=== PATIENT | female | born 1995 | race African-American/Black ===

== ENCOUNTER 2019-06-06 05:56 | Inpatient (IN) ==
[2019-06-06] MEDS ORDERED: ONDANSETRON 4 MG/2 ML VIAL IV PRN (06:09)
[2019-06-06] MEDS ORDERED: MEPERIDINE 50 MG/1 ML VIAL IV PRN (06:09)
[2019-06-06] MEDS ORDERED: BUTORPHANOL 2 MG/ML VIAL IV PRN (06:09)
[2019-06-06] MEDS ORDERED: OXYTOCIN/LR 20 UNIT/1,000 ML BAG IV SCH (06:30)
[2019-06-06] MEDS: LACTATED RINGERS 1,000 ML IV SCH ×3 (06:30→22:05)
[2019-06-06 06:35] LABS: Basophils % 0.2 % (0.0-0.8); Eosinophils # 0.1 10*3/uL (0.0-0.87); Eosinophils % 1.4 % (0.00-10.9); Hematocrit 33.2 VOL% (35.7-47.0); Hemoglobin 10.8 GM/DL (12.0-16.0); Immature Granulocytes % 0.8 %; Immature Granulocytes Absolute 0.08 #; Lymphocytes # 2.2 10*3/uL (1.4-4.0); Lymphocytes % 22.4 % (21.3-54.2); Mean Corpuscular HGB Conc 32.5 GM/DL (32-36); Mean Corpuscular Volume 88.3 FL (87-102); Mean Platelet Volume 9.7 FL (9.6-12.0); Monocytes % 8.6 % (1.7-12.7); Neutrophils % 66.6 % (38.7-73.9); Platelet Count 210 T/CUMM (130-400); Red Blood Count 3.76 MC/CUMM (3.8-5.5); Red Cell Distribution Width 13.2 % (9.3-17.3); White Blood Count 9.9 T/CUMM (4-12)
[2019-06-06 06:49] LABS: Alanine Aminotransferase 18 U/L (13-56); Albumin 2.8 G/DL (3.4-5.0); Alkaline Phosphatase 86 U/L (45-117); Aspartate Amino Transferase 10 U/L (0-37); Bilirubin,Total < 0.39 MG/DL (0.2-1.0); Blood Urea Nitrogen 5 MG/DL (7-18); Calcium 8.7 MG/DL (8.5-10.1); Estimated Glom Filtration Rate 198 ML/MIN; Glucose 85 MG/DL (74-106); Total Protein 6.8 G/DL (6.4-8.3)
[2019-06-06] MEDS ORDERED: PROMETHAZINE 25 MG/1 ML VIAL IM ONE (08:02)
[2019-06-06] MEDS ORDERED: NALOXONE 0.4 MG/ML VIAL IV PRN (08:02)
[2019-06-06] MEDS ORDERED: CITRIC ACID/SODIUM CITRATE 30 ML UDCUP PO ONE (08:02)
[2019-06-06] MEDS ORDERED: FAMOTIDINE 20 MG/2 ML VIAL IV ONE (08:02)
[2019-06-06] MEDS ORDERED: ePHEDrine 50 MG/ML AMP IV PRN (08:02)
[2019-06-06] MEDS ORDERED: hydrOXYzine HCL 25 MG/1 ML VIAL IM PRN (08:02)
[2019-06-06] MEDS ORDERED: diphenhydrAMINE 50 MG/1 ML VIAL IV PRN ×2 (08:02)
[2019-06-06] MEDS ORDERED: fentaNYL 2 MCG/ROPIV 0.2% EPID 100 ML EPIDURAL SCH (08:30)
[2019-06-06 11:10] LABS: Apearance,Urine CLEAR (Clear); Bilirubin,Urine Negative (Negative); Blood, Urine Negative (Negative); Glucose,Urine (UA) Negative (Negative); Ketones,Urine 5 mg/dL (Negative); Mucus,Urine Occasional /LPF (Occasional); Nitrite,Urine Negative (Negative); Protein,Urine Negative; RBC,Urine 2 /HPF (0-4); Squamous Epithelial Cell,Urine Occasional /HPF (0-10); Urine Color Yellow (Yellow); Urine Specific Gravity 1.008 (1.001-1.035); Urine Urobilinogen < 2.0 EU/DL (0.2-1.0); WBC,Urine 1 /HPF (0-6)
[2019-06-06] MEDS ORDERED: CLINDAMYCIN INJ 900 MG in PREMIX 1 EACH IV ONE (13:44)
[2019-06-06] MEDS ORDERED: OXYTOCIN/LR 30 UNIT/1,000 ML BAG IV ONE (13:46)
[2019-06-06] MEDS ORDERED: OXYTOCIN 10 UNIT/ML VIAL IM ONE (13:46)
[2019-06-06] MEDS ORDERED: METHYLERGONOVINE 0.2 MG/1 ML AMP ONE (13:54)
[2019-06-06] MEDS ORDERED: miSOPROStoL 200 MCG TABLET ONE (13:54)
[2019-06-06] MEDS ORDERED: CARBOPROST TROMETHAMINE 250 MCG/ML AMP IM ONE (13:54)
[2019-06-06 14:53] LABS: Cord Venous Blood HCO3 22.8 MMOL/L; Cord Venous Blood PCO2 42.4 MMHG; Cord Venous Blood PO2 26.6 MMHG
[2019-06-06] MEDS ORDERED: MORPHINE 10 MG/10 ML VIAL ONE (15:03)
[2019-06-06] MEDS ORDERED: PHENYLEPHRINE 1 MG/10 ML SYRINGE IV ONE (15:03)
[2019-06-06] MEDS ORDERED: LIDOCAINE MPF 2% /EPI 20 ML VIAL ONE (15:04)
[2019-06-06] MEDS ORDERED: SIMETHICONE CHEW 80 MG TABLET PO PRN (16:59)
[2019-06-06] MEDS ORDERED: ACETAMINOPHEN 325 MG TABLET PO PRN (16:59)
[2019-06-06] MEDS: IBUPROFEN 800 MG TABLET PO PRN (21:05)
[2019-06-06] MEDS: DOCUSATE SODIUM 100 MG CAPSULE PO SCH (21:07)
[2019-06-06] MEDS: CLINDAMYCIN INJ 900 MG in PREMIX 1 EACH IV SCH (21:35)
[2019-06-07 05:45] LABS: Basophils % 0.3 % (0.0-0.8); Eosinophils # 0.1 10*3/uL (0.0-0.87); Hemoglobin 8.8 GM/DL (12.0-16.0); Immature Granulocytes % 0.9 %; Immature Granulocytes Absolute 0.11 #; Lymphocytes % 16.7 % (21.3-54.2); Mean Corpuscular HGB Conc 32.6 GM/DL (32-36); Mean Corpuscular Volume 86.8 FL (87-102); Mean Platelet Volume 9.2 FL (9.6-12.0); Monocytes % 10.1 % (1.7-12.7); Platelet Count 170 T/CUMM (130-400); Red Blood Count 3.11 MC/CUMM (3.8-5.5); Red Cell Distribution Width 13.2 % (9.3-17.3); White Blood Count 11.7 T/CUMM (4-12)
[2019-06-07] MEDS: IBUPROFEN 800 MG TABLET PO PRN ×2 (06:11→17:18)
[2019-06-07] MEDS: CLINDAMYCIN INJ 900 MG in PREMIX 1 EACH IV SCH (06:12)
[2019-06-07] MEDS: METOCLOPRAMIDE 10 MG TABLET PO SCH ×3 (09:39→20:49)
[2019-06-07] MEDS: MULTIVITAMIN (PRENATAL) TABLET PO SCH (09:39)
[2019-06-07] MEDS: DOCUSATE SODIUM 100 MG CAPSULE PO SCH ×2 (09:39→20:49)
[2019-06-07] MEDS: MAGNESIUM HYDROXIDE SUSP 30 ML UDCUP PO PRN ×2 (12:23→20:49)
[2019-06-08] MEDS: IBUPROFEN 800 MG TABLET PO PRN (01:29)
[2019-06-08] MEDS: METOCLOPRAMIDE 10 MG TABLET PO SCH (05:00)
[2019-06-08 07:22] VITALS: BP 131/79
[2019-06-08] MEDS: DOCUSATE SODIUM 100 MG CAPSULE PO SCH (08:49)
[2019-06-08] MEDS: MAGNESIUM HYDROXIDE SUSP 30 ML UDCUP PO PRN (08:50)
[2019-06-08] MEDS: MULTIVITAMIN (PRENATAL) TABLET PO SCH (08:50)
[2019-06-08] MEDS ORDERED: FERROUS SULFATE 325 MG TABLET PO SCH (09:00)
[2019-06-08] MEDS ORDERED: INFLUENZA VIRUS VACCINE 0.5 ML SYRINGE IM ONE (10:45)
[2019-06-08] MEDS ORDERED: DIPH/TET/ACEL PERT BOOSTER VACCINE 0.5 ML VIAL IM ONE (10:45)
== END 2019-06-08 11:55 | disposition home or self-care (01) | DRG 540 ==
LOC: N.LDOUT 05:56 → N.LD 05:58 → N.OB 17:25
PROVIDERS: ADMIT Obstetrics & Gynecology; ATTEND Obstetrics & Gynecology
PROC: LDCSECT (ICD-10-PCS; 2019-06-06 14:00)

== ENCOUNTER 2020-09-19 09:52 | Inpatient (IN) ==
[2020-09-19] MEDS ORDERED: CITRIC ACID/SODIUM CITRATE 30 ML UDCUP PO ONE (10:09)
[2020-09-19] MEDS ORDERED: FAMOTIDINE 20 MG/2 ML VIAL IV ONE (10:09)
[2020-09-19] MEDS ORDERED: CLINDAMYCIN INJ 900 MG in PREMIX 1 EACH IV ONE (10:09)
[2020-09-19] MEDS: LACTATED RINGERS 1,000 ML IV SCH (10:27)
[2020-09-19] MEDS ORDERED: OXYTOCIN/LR 30 UNIT/1,000 ML BAG IV ONE (10:43)
[2020-09-19] MEDS ORDERED: OXYTOCIN 10 UNIT/ML VIAL IM ONE (10:43)
[2020-09-19 10:46] LABS: Basophils % 0.1 % (0.0-0.8); Eosinophils # 0.1 10*3/uL (0.0-0.87); Eosinophils % 1.2 % (0.00-10.9); Hematocrit 31.7 VOL% (35.7-47.0); Hemoglobin 10.4 GM/DL (12.0-16.0); Immature Granulocytes % 0.7 %; Immature Granulocytes Absolute 0.06 #; Lymphocytes % 23.1 % (21.3-54.2); Mean Corpuscular HGB Conc 32.8 GM/DL (32-36); Mean Corpuscular Volume 85.7 FL (87-102); Mean Platelet Volume 9.5 FL (9.6-12.0); Monocytes % 7.9 % (1.7-12.7); Platelet Count 192 T/CUMM (130-400); Red Cell Distribution Width 13.3 % (9.3-17.3); White Blood Count 8.6 T/CUMM (4-12)
[2020-09-19 11:19] LABS: Albumin 2.8 G/DL (3.4-5.0); Bilirubin,Total 0.6 MG/DL (0.2-1.0); Calcium 8.5 MG/DL (8.5-10.1); Osmolality,Calculated 266.1 MOS/KG (273-304); Potassium 3.6 MMOL/L (3.5-5.1); Total Protein 6.8 G/DL (6.4-8.3)
[2020-09-19] MEDS ORDERED: OXYTOCIN/LR 20 UNIT/1,000 ML BAG IV ONE ×2 (11:50→15:55)
[2020-09-19] MEDS ORDERED: miSOPROStoL 200 MCG TABLET ONE (11:50)
[2020-09-19] MEDS ORDERED: TRANEXAMIC ACID 1,000 MG/10 ML VIAL ONE (11:50)
[2020-09-19] MEDS ORDERED: METHYLERGONOVINE 0.2 MG/1 ML AMP ONE (11:50)
[2020-09-19] MEDS ORDERED: CARBOPROST TROMETHAMINE 250 MCG/ML AMP IM ONE (11:51)
[2020-09-19] MEDS ORDERED: MORPHINE 10 MG/10 ML VIAL ONE (13:55)
[2020-09-19] MEDS ORDERED: BUPIVACAINE MPF 0.25% 30 ML VIAL ONE (13:56)
[2020-09-19] MEDS ORDERED: BUPIVACAINE SPINAL 0.75% 2 ML AMP SPINAL ONE (13:56)
[2020-09-19] MEDS ORDERED: BUPIVACAINE MPF 0.5% /EPI 30 ML VIAL ONE (13:56)
[2020-09-19] MEDS ORDERED: PHENYLEPHRINE 1 MG/10 ML SYRINGE IV ONE (14:36)
[2020-09-19] MEDS ORDERED: ONDANSETRON 4 MG/2 ML VIAL ONE (14:36)
[2020-09-19] MEDS ORDERED: DEXAMETHASONE 4 MG/1 ML VIAL ONE (14:36)
[2020-09-19 14:53] LABS: Cord Arterial Blood HCO3 20.1 MMOL/L
[2020-09-19 14:57] LABS: Cord Venous Blood PCO2 39.4 MMHG; Cord Venous Blood PO2 38.2 MMHG
[2020-09-19] MEDS ORDERED: SODIUM CHLORIDE 0.9% 250 ML IV ONE (15:03)
[2020-09-19] MEDS ORDERED: AMPICILLIN 2,000 MG VIAL ONE (15:03)
[2020-09-19 15:13] LABS: Bilirubin,Urine Negative (Negative); Blood, Urine Negative (Negative); Glucose,Urine (UA) Negative (Negative); Ketones,Urine 80 mg/dL (Negative); Mucus,Urine Many /LPF (Occasional); Nitrite,Urine Negative (Negative); Protein,Urine 30 MG/DL; RBC,Urine 1 /HPF (0-4); Squamous Epithelial Cell,Urine Occasional /HPF (0-10); Urine Appearance CLEAR (Clear); Urine Color Yellow (Yellow); Urine Specific Gravity 1.023 (1.001-1.035); WBC,Urine 8 /HPF (0-6)
[2020-09-19] MEDS ORDERED: ACETAMINOPHEN 1,000 MG/100 ML VIAL IV ONE (15:17)
[2020-09-19] MEDS ORDERED: KETOROLAC 30 MG/1 ML VIAL ONE (15:17)
[2020-09-19] MEDS ORDERED: ACETAMINOPHEN INJ 1,000 MG in PREMIX 1 EACH IV ONE (15:21)
[2020-09-19] MEDS ORDERED: KETOROLAC 30 MG/1 ML VIAL IM PRN (15:22)
[2020-09-19] MEDS ORDERED: SIMETHICONE CHEW 80 MG TABLET PO PRN (15:55)
[2020-09-19] MEDS ORDERED: ONDANSETRON 4 MG/2 ML VIAL IV PRN (15:55)
[2020-09-19] MEDS ORDERED: RHO(D) IMMUNE GLOBULIN 300 MCG SYRINGE IM ONE (15:55)
[2020-09-19] MEDS ORDERED: ACETAMINOPHEN 325 MG TABLET PO PRN (15:55)
[2020-09-19] MEDS ORDERED: MAGNESIUM HYDROXIDE SUSP 30 ML UDCUP PO PRN (15:55)
[2020-09-19] MEDS ORDERED: LACTATED RINGERS 1,000 ML IV SCH (16:00)
[2020-09-19] MEDS: DOCUSATE SODIUM 100 MG CAPSULE PO SCH (20:58)
[2020-09-19] MEDS: ceFAZolin 1,000 MG in SYRINGE 1 EACH IV SCH (20:59)
[2020-09-19] MEDS ORDERED: ACETAMINOPHEN 500 MG TABLET PO PRN (21:30)
[2020-09-20] MEDS: ceFAZolin 1,000 MG in SYRINGE 1 EACH IV SCH (05:58)
[2020-09-20] MEDS: LACTATED RINGERS 1,000 ML IV SCH (05:59)
[2020-09-20] MEDS ORDERED: ceFAZolin 1,000 MG in SYRINGE 1 EACH IV SCH (06:00)
[2020-09-20 07:12] LABS: Basophils % 0.1 % (0.0-0.8); Eosinophils # 0.1 10*3/uL (0.0-0.87); Eosinophils % 0.3 % (0.00-10.9); Hematocrit 29.2 VOL% (35.7-47.0); Hemoglobin 9.7 GM/DL (12.0-16.0); Immature Granulocytes % 0.7 %; Lymphocytes # 2.3 10*3/uL (1.4-4.0); Lymphocytes % 16.3 % (21.3-54.2); Mean Corpuscular HGB Conc 33.2 GM/DL (32-36); Mean Corpuscular Volume 85.9 FL (87-102); Mean Platelet Volume 9.5 FL (9.6-12.0); Monocytes % 9.1 % (1.7-12.7); Neutrophils % 73.5 % (38.7-73.9); Platelet Count 185 T/CUMM (130-400); Red Cell Distribution Width 13.1 % (9.3-17.3); White Blood Count 14.3 T/CUMM (4-12)
[2020-09-20] MEDS: MULTIVITAMIN (PRENATAL) TABLET PO SCH (08:50)
[2020-09-20] MEDS: IBUPROFEN 800 MG TABLET PO PRN ×2 (08:50→14:15)
[2020-09-20] MEDS: DOCUSATE SODIUM 100 MG CAPSULE PO SCH ×2 (08:51→20:55)
[2020-09-20] MEDS: METOCLOPRAMIDE 10 MG TABLET PO PRN ×2 (14:16→20:55)
[2020-09-20] MEDS: FERROUS SULFATE 325 MG TABLET PO SCH (20:55)
[2020-09-21] MEDS: IBUPROFEN 800 MG TABLET PO PRN ×2 (00:26→08:40)
[2020-09-21] MEDS: MULTIVITAMIN (PRENATAL) TABLET PO SCH (08:40)
[2020-09-21] MEDS: DOCUSATE SODIUM 100 MG CAPSULE PO SCH (08:40)
[2020-09-21] MEDS: FERROUS SULFATE 325 MG TABLET PO SCH (08:40)
[2020-09-21 09:09] VITALS: BP 123/79
[2020-09-21] MEDS ORDERED: DIPH/TET/ACEL PERT BOOSTER VACCINE 0.5 ML VIAL IM ONE (10:46)
[2020-09-21] MEDS ORDERED: INFLUENZA VIRUS VACCINE 0.5 ML SYRINGE IM ONE (10:50)
== END 2020-09-21 12:00 | disposition home or self-care (01) | DRG 540 ==
LOC: N.LDOUT 09:52 → N.LD 09:54 → N.OB 09-20 09:07
PROVIDERS: ADMIT Obstetrics & Gynecology; ATTEND Obstetrics & Gynecology
PROC: LDCSECT (ICD-10-PCS; 2020-09-19 14:00)